=== PATIENT | female | born 2000 | race African-American/Black ===

== ENCOUNTER 2023-01-27 15:31 | Emergency (ER) | payer SELFPAY ==
[2023-01-27] MEDS ORDERED: Bacitracin Oint 1 GM U/D Packet TOP STA (16:46)
== END 2023-01-27 17:06 | disposition home or self-care (01) ==
LOC: MW.ED 15:31
DX: S61.216A Laceration without foreign body of right little finger without damage to nail, initial encounter (principal); Z91.013 Allergy to seafood; Z88.8 Allergy status to other drugs, medicaments and biological substances; W26.8XXA Contact with other sharp object(s), not elsewhere classified, initial encounter
CPT/HCPCS: 99282